=== PATIENT | male | born 1975 | race Two or more races ===

== ENCOUNTER 2018-06-02 21:03 | Emergency (ER) | payer OTHER ==
[~2018-06-02] VITALS: Ht 188 cm; Wt 102.1 kg
== END 2018-06-02 22:59 | disposition home or self-care (01) ==
LOC: ER 21:03
DX: S01.121A Laceration with foreign body of right eyelid and periocular area, initial encounter (principal); W45.8XXA Other foreign body or object entering through skin, initial encounter; Y93.89 Activity, other specified; Y92.89 Other specified places as the place of occurrence of the external cause; Y99.8 Other external cause status

== ENCOUNTER 2019-03-31 23:26 | Emergency (ER) | payer OTHER ==
[~2019-03-31] VITALS: Ht 185.4 cm; Wt 103.4 kg
== END 2019-04-01 05:08 | disposition home or self-care (01) ==
LOC: ER 23:26
DX: I16.0 Hypertensive urgency (principal); I10 Essential (primary) hypertension